=== PATIENT | female | born 1965 | race Caucasian/White ===

== ENCOUNTER 2018-11-28 09:54 | Emergency (ER) | payer MEDICAID ==
--- NOTE | 2018-11-28 10:20 | ER Document Report ---
Addendum entered and electronically signed by CHARAN DIXON PA-C 11/28/18 12:40: Discharge - Discharge Clinical Impression: Personality disorder Condition: Stable Disposition: HOME, SELF-CARE Additional Instructions: You are highly encouraged to work with your outpatient mental health providers for your chronic mental health symptoms (i.e. passive suicidal ideation) to learn how to interpret your environment, build positive coping skills, and identify triggers. You have been provided a local resource list of area providers including mobile crisis contact information. AT ANY TIME, IF YOUR SYMPTOMS CHANGE SIGNIFICANTLY OR WORSEN OR YOU DEVELOP NEW SYMPTOMS, RETURN TO THE EMERGENCY DEPARTMENT IMMEDIATELY FOR RE-EVALUATION. Referrals: [facility] [Outside] - Follow up as needed Addendum entered and electronically signed by JEFE STEPHENS LCSWA 11/28/18 12:31: Discharge - Discharge Clinical Impression: Personality disorder Condition: Stable Disposition: HOME, SELF-CARE Additional Instructions: You are highly encouraged to work with your outpatient mental health providers for your chronic mental health symptoms (i.e. passive suicidal ideation) to learn how to interpret your environment, build positive coping skills, and identify triggers. You have been provided a local resource list of area providers including mobile crisis contact information. AT ANY TIME, IF YOUR SYMPTOMS CHANGE SIGNIFICANTLY OR WORSEN OR YOU DEVELOP NEW SYMPTOMS, RETURN TO THE EMERGENCY DEPARTMENT IMMEDIATELY FOR RE-EVALUATION. Referrals: [facility] [Outside] - Follow up as needed Original Note: ED Medical Screen (RME) - General Chief Complaint: Suicidal Ideation Stated Complaint: SI Time Seen by Provider: 11/28/18 10:13 Notes: Patient is a 53-year-old female presents to the emergency department "I am suicidal with a plan." Patient states she plans on overdosing on "all of my medications." Patient states the last couple weeks she has taken too many Flexeril at once. Patient is unable to name any of the other medications she is on. GENERAL: Alert, interacts well. No acute distress. LUNGS: Clear to auscultation bilaterally, no wheezes, rales, or rhonchi. No respiratory distress. PSYCH: Flat affect, normal mood. I have greeted and performed a rapid initial assessment of this patient. A comprehensive ED assessment and evaluation of the patient, analysis of test results and completion of the medical decision making process will be conducted by additional ED providers. I have specifically instructed the patient or family members with the patient to immediately return to any nursing staff should anything change in the patient's condition or with their chief complaint. This medical record was dictated with voice recognizing software. There may be grammatical, syntax errors that are unintended. TRAVEL OUTSIDE OF THE [place] IN LAST 30 DAYS: No - Related Data Allergies/Adverse Reactions: benztropine [From Cogentin] Allergy (Verified 03/17/16 17:57) bupropion [From Wellbutrin] Allergy (Verified 03/17/16 17:57) hydroxyzine [From Vistaril] Allergy (Verified 03/17/16 17:57) ketorolac [From Toradol] Allergy (Verified 03/17/16 17:57) Past Medical History Psychiatric Medical History: Reports: Hx Bipolar Disorder Past Surgical History: Reports: Hx Orthopedic Surgery - Right knee surgery Physical Exam - Vital signs Vitals: Temp Pulse Resp BP Pulse Ox 98.3 F 105 H 18 160/66 H 98 11/28/18 10:04 11/28/18 10:04 11/28/18 10:04 11/28/18 10:04 11/28/18 10:04 Course - Vital Signs Vital signs: Temp Pulse Resp BP Pulse Ox 98.3 F 105 H 18 160/66 H 98 11/28/18 10:04 11/28/18 10:04 11/28/18 10:04 11/28/18 10:04 11/28/18 10:04
[2018-11-28 11:07] LABS: ABSOLUTE BASOPHILS # (AUTO) 0.1 10^3/uL (0.0-0.2); ABSOLUTE EOSINOPHILS # (AUTO) 0.2 10^3/uL (0.0-0.6); ABSOLUTE MONOCYTES (AUTO) 0.5 10^3/uL (0.1-1.4); HEMOGLOBIN 10.2 g/dL (12.0-15.5); LYMPHOCYTES % (AUTO) 22.6 % (13-45); TOTAL CELLS COUNTED % (AUTO) 100 %
[2018-11-28 11:20] LABS: ABSOLUTE LYMPHOCYTES (AUTO) 1.4 10^3/uL (0.5-4.7); ABSOLUTE NEUT (AUTO) 4.2 10^3/uL (1.7-8.2); EOSINOPHILS % (AUTO) 3.8 % (0-6); MEAN CORPUSCULAR VOLUME 84 fl (80-97); MONOCYTES % (AUTO) 7.5 % (3-13); PLATELET COUNT 274 10^3/uL (150-450); RED CELL DISTRIBUTION WIDTH 16.5 % (11.5-14.0); SEGMENTED NEUTROPHILS % (AUTO) 65.1 % (42-78); WHITE BLOOD COUNT 6.4 10^3/uL (4.0-10.5)
[2018-11-28 11:33] LABS: ALANINE AMINOTRANSFERASE 25 U/L (9-52); ALBUMIN 4.4 g/dL (3.5-5.0); ALKALINE PHOSPHATASE 155 U/L (38-126); ANION GAP 13 (5-19); ASPARTATE AMINO TRANSFERASE 29 U/L (14-36); BILIRUBIN,DIRECT 0.2 mg/dL (0.0-0.4); BILIRUBIN,TOTAL 0.3 mg/dL (0.2-1.3); BLOOD UREA NITROGEN 17 mg/dL (7-20); CALCIUM 10.2 mg/dL (8.4-10.2); CARBON DIOXIDE 26 mmol/L (22-30); CHLORIDE 103 mmol/L (98-107); GLUCOSE 97 mg/dL (75-110); POTASSIUM 4.1 mmol/L (3.6-5.0); TOTAL PROTEIN 7.3 g/dL (6.3-8.2)
[2018-11-28 11:36] LABS: ACETAMINOPHEN < 10 ug/mL (10-30); ALCOHOL < 10 mg/dL (NONE DETECTED); SALICYLATE < 1.0 mg/dL (2.0-20.0)
[2018-11-28 11:42] LABS: APPEARANCE,URINE CLEAR; BILIRUBIN,URINE NEGATIVE (NEGATIVE); COLOR,URINE YELLOW; GLUCOSE, URINE NEGATIVE (NEGATIVE); KETONES,URINE NEGATIVE (NEGATIVE); LEUKOCYTE ESTERASE,URINE NEGATIVE (NEGATIVE); NITRITE,URINE NEGATIVE (NEGATIVE); PROTEIN,URINE NEGATIVE (NEGATIVE); URINE SPECIFIC GRAVITY 1.013; UROBILINOGEN,URINE NEGATIVE mg/dL (<2.0)
[2018-11-28 11:51] LABS: URINE AMPHETAMINES SCREEN NEGATIVE; URINE BARBITURATES SCREEN NEGATIVE; URINE BENZODIAZEPINES SCREEN NEGATIVE; URINE COCAINE SCREEN NEGATIVE; URINE MARIJUANA (THC) SCREEN NEGATIVE; URINE METHADONE SCREEN NEGATIVE; URINE PHENCYCLIDINE SCREEN NEGATIVE
--- NOTE | 2018-11-28 12:46 | ER Document Report ---
ED Psych Disorder / Suicide - General Chief Complaint: Suicidal Ideation Stated Complaint: SI Time Seen by Provider: 11/28/18 10:13 Primary Care Provider: [facility] [Outside] - Follow up as needed Notes: Patient is a 53-year-old female presents to the emergency department "I am suicidal with a plan." Patient states she plans on overdosing on "all of my medications." Patient states over the last couple weeks she has taken "too many Flexeril at once." Patient is unable to name any of the other medications she is on. Patient's denying nausea, vomiting, diarrhea, chest pain, shortness of breath, dysuria. TRAVEL OUTSIDE OF THE [place] IN LAST 30 DAYS: No - Related Data Allergies/Adverse Reactions: benztropine [From Cogentin] Allergy (Verified 11/28/18 10:42) bupropion [From Wellbutrin] Allergy (Verified 11/28/18 10:42) hydroxyzine [From Vistaril] Allergy (Verified 11/28/18 10:42) ketorolac [From Toradol] Allergy (Verified 11/28/18 10:42) Past Medical History - General Information source: Patient - Social History Smoking Status: Never Smoker Chew tobacco use (# tins/day): No Drug Abuse: None Family History: None Patient has suicidal ideation: Yes Patient has homicidal ideation: No Renal/ Medical History: Denies: Hx Peritoneal Dialysis Psychiatric Medical History: Reports: Hx Bipolar Disorder Past Surgical History: Reports: Hx Orthopedic Surgery - Right knee surgery Review of Systems - Review of Systems Constitutional: No symptoms reported EENT: No symptoms reported Cardiovascular: No symptoms reported Respiratory: No symptoms reported Gastrointestinal: No symptoms reported Genitourinary: No symptoms reported Female Genitourinary: No symptoms reported Musculoskeletal: No symptoms reported Skin: No symptoms reported Hematologic/Lymphatic: No symptoms reported Neurological/Psychological: See HPI Physical Exam - Vital signs Vitals: Temp Pulse Resp BP Pulse Ox 98.3 F 105 H 18 160/66 H 98 11/28/18 10:04 11/28/18 10:04 11/28/18 10:04 11/28/18 10:04 11/28/18 10:04 - Notes Notes: GENERAL: Alert, interacts well. No acute distress. HEAD: Normocephalic, atraumatic. EYES: Pupils equal, round, and reactive to light. Extraocular movements intact. ENT: Oral mucosa moist, tongue midline. NECK: Full range of motion. Supple. Trachea midline. LUNGS: Clear to auscultation bilaterally, no wheezes, rales, or rhonchi. No respiratory distress. HEART: Regular rate and rhythm. No murmur ABDOMEN: Soft, non-tender. Non-distended. Bowel sounds present in all 4 quadrants. EXTREMITIES: Moves all 4 extremities spontaneously. No edema, normal radial and dorsalis pedis pulses bilaterally. No cyanosis. BACK: no cervical, thoracic, lumbar midline tenderness. No saddle anesthesia, normal distal neurovascular exam. NEUROLOGICAL: Alert and oriented x3. Normal speech. cranial nerves II through XII grossly intact PSYCH: Flat affect, normal mood. SKIN: Warm, dry, normal turgor. No rashes or lesions noted. Course - Re-evaluation Re-evalutation: Patient continues to deny any episodes of vomiting or dark black or bloody stools. Patient is medically cleared for a psychiatric evaluation. Psychiatric evaluation performed, see provider note for details. Patient stable for discharge per psychiatric team. - Vital Signs Vital signs: Temp Pulse Resp BP Pulse Ox 98.3 F 105 H 18 160/66 H 98 11/28/18 10:04 11/28/18 10:04 11/28/18 10:04 11/28/18 10:04 11/28/18 10:04 - Laboratory Result Diagrams: 11/28/18 10:57 11/28/18 10:57 Laboratory results interpreted by me: 11/28/18 11/28/18 10:57 10:57 Hgb 10.2 L Hct 32.0 L RDW 16.5 H Est GFR (Non-Af Amer) 58 L Alkaline Phosphatase 155 H Salicylates < 1.0 L Acetaminophen < 10 L Discharge - Discharge Clinical Impression: Personality disorder Condition: Stable Disposition: HOME, SELF-CARE Additional Instructions: You are highly encouraged to work with your outpatient mental health providers for your chronic mental health symptoms (i.e. passive suicidal ideation) to learn how to interpret your environment, build positive coping skills, and identify triggers. You have been provided a local resource list of area providers including mobile crisis contact information. AT ANY TIME, IF YOUR SYMPTOMS CHANGE SIGNIFICANTLY OR WORSEN OR YOU DEVELOP NEW SYMPTOMS, RETURN TO THE EMERGENCY DEPARTMENT IMMEDIATELY FOR RE-EVALUATION. Referrals: [facility] [Outside] - Follow up as needed
[2018-11-28 13:15] VITALS: BP 116/92
--- NOTE | 2018-11-28 23:15 | EKG REPORT ---
SEVERITY:- NORMAL ECG - SINUS RHYTHM : Confirmed by: Kwesi Patel 28-Nov-2018 23:14:25
== END 2018-11-28 13:13 | disposition home or self-care (01) ==
LOC: ER 09:54
DX: F60.9 Personality disorder, unspecified (principal)
CPT/HCPCS: 36415; 80053; 80307; 81001; 85025; 93005; 93010; 99285